=== PATIENT | female | born 1950 | race Caucasian/White ===

== ENCOUNTER 2021-11-24 08:30 | Day surgery (SDC) | payer OTHER ==
--- NOTE | 2021-11-22 12:41 | RAD REPORT ---
EXAM DESCRIPTION: RAD - Chest Pa And Lat (2 Views) - 11/22/2021 12:34 pm CLINICAL HISTORY: pre cath procedure Chest pain. COMPARISON: Chest Single View dated 07/01/2017; Chest Single View dated 06/29/2017; Chest Single View da berenice 06/28/2017 FINDINGS: The lungs are clear. The heart is normal in size. Very prominent dextroscoliosis of the th oracic spine.
[2021-11-22 12:51] LABS: Potassium 3.9 mmol/L (3.5-5.1)
[2021-11-22 13:01] LABS: Protime INR 0.97
[2021-11-22 13:06] LABS: Absolute Lymphocytes (CBC) 2.3 K/uL (0.7-4.9); Hematocrit 43.9 % (36.0-45.0); Lymphocytes % 30.3 % (15.3-44.8); MPV 8.2 fL (7.6-11.3); RBC Red Blood Cell Count 4.71 M/uL (3.86-4.86)
--- NOTE | 2021-11-23 13:01 | EKG ---
Test Date: 2021-11-22 Test Time: 12:13:32 Lesson Instructor: BRITTNEY MEASUREMENT RESULTS: Intervals: Rate: 77 OR: 134 QRSD: 144 QT: 438 QTc: 495 [place]: P: 59 OR: 134 QRS: -32 T: 63 INTERPRETIVE STATEMENTS: Normal sinus rhythm Possible Left atrial enlargement Left axis deviation Left bundle branch block Abnormal ECG Compared to ECG 06/29/2017 09:08:40 Left-axis deviation now present Electronically Signed On 11-23-21 12:59:49 CDT by Tanmay Ruvalcaba
[2021-11-24] MEDS ORDERED: LIDOCAINE 1% 20 ML MDV ONE (08:33)
[2021-11-24] MEDS ORDERED: HEPA 1000U/500MLS 1,000 UNIT/500 ML BAG IV ONE (08:33)
[2021-11-24] MEDS ORDERED: NA CHLORIDE 0.9% 500 ML ONE (08:44)
[2021-11-24] MEDS ORDERED: ATROPINE SULF 1 MG/10 ML SYR IV ONE (09:14)
[2021-11-24] MEDS ORDERED: NA CHLORIDE 0.9% 0 ML ONE (09:14)
[2021-11-24] MEDS ORDERED: FENTANYL CITR 100 MCG/2 ML ONE (09:14)
[2021-11-24] MEDS ORDERED: MIDAZOLAM HCL 2 MG/2 ML INJ ONE ×2 (09:14→09:50)
[2021-11-24 12:13] VITALS: BP 125/58; O2SAT 98
--- NOTE | 2021-11-24 20:15 | OP ---
Surgeon: Tanmay Ruvalcaba MD Clinical Services Assistant: Ms. Georgia Love. The patient will be at bedrest for 2 hours and then she will go home and I will see her in the office in 2 weeks. 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 Procedures: Left heart catheterization, selective coronary arteriogram, and common femoral artery an giogram. Indication: Abnormal stress test, abnormal echocardiogram. Procedure In Detail: The patient was prepped and draped in routine sterile fashion. Given some fent anyl and Versed for sedation. She was draped. A 6-Japanese sheath introduced in the right common femo ral artery successfully using the Seldinger technique and 10 cc of Xylocaine. Common femoral arteria l angiogram was normal. Angio-Seal was used to close the case. Hernandez catheter left and right were used to cannulate the left main and right main respectively. She was found to have perfectly normal coronaries. She was left dominant. A pigtail catheter was introduced in the left ventricle and lef t ventricular end-diastolic pressure was 4. However, she had an ejection fraction about 35% to 40% c onsistent with her echo. Total conscious sedation was 45 minutes. No complications. Blood loss was 5 mL. Postoperative Diagnosis: Congestive heart failure, acute, systolic. Plan: Plan for medical therapy. AMY/MICHELLE Voice ID: [id number] Report ID: [id number]
== END 2021-11-24 12:20 | disposition home or self-care (01) ==
LOC: CCL 08:30
DX: I50.21 Acute systolic (congestive) heart failure (principal); I10 Essential (primary) hypertension; I65.22 Occlusion and stenosis of left carotid artery; E78.2 Mixed hyperlipidemia; J44.9 Chronic obstructive pulmonary disease, unspecified; Z87.891 Personal history of nicotine dependence; Z79.899 Other long term (current) drug therapy; Z88.0 Allergy status to penicillin; Z20.822 Contact with and (suspected) exposure to COVID-19; Z82.49 Family history of ischemic heart disease and other diseases of the circulatory system
CPT/HCPCS: 93005; 85025; 80048; 36415; 85610; 85730; 71046; 93458; U0003; C1893; Q9966; C1760; G0269; J2250 ×2; J3010; J7040; J1644; J0583